=== PATIENT | female | born 1980 | race Caucasian/White ===

== ENCOUNTER → 2018-03-25 08:14 | Outpatient (CLI) | payer OTHER, SELFPAY ==
--- NOTE | 2018-03-25 | DI.MG.S_ITS ---
BILATERAL DIGITAL SCREENING MAMMOGRAM 3D/2D WITH CAD: 03/25/2018 CLINICAL: Baseline exam. Routine screening. Family history of breast cancer. Comparison is made to exam dated: 01/08/2011 [facility]. The tissue of both breasts is extremely dense, which lowers the sensitivity of mammography. Current study was also evaluated with a Computer Aided Detection (CAD) system. No significant masses, calcifications, or other findings are seen in either breast. There has been no significant interval change. IMPRESSION: NEGATIVE There is no mammographic evidence of malignancy. A 1 year screening mammogram is recommended. This exam was interpreted at Station ID: [id number]. NOTE: For mammograms, a report in lay terms will be sent to the patient. Approximately 15% of breast malignancies will not be visualized mammographically. In the management of a palpable breast mass, a negative mammogram must not discourage biopsy of a clinically suspicious lesion. Electronically Signed By: Ashok [email or web address]:03/25/2018 11:08:40 letter sent: Normal Exam ACR BI-RADS Category 1: Negative [id number]
== END ==
PROVIDERS: Family Provider Obstetrics & Gynecology; PCP Obstetrics & Gynecology; Visit Provider Obstetrics & Gynecology
DX: Z12.31 Encounter for screening mammogram for malignant neoplasm of breast (principal); Z80.3 Family history of malignant neoplasm of breast
CPT/HCPCS: 77063; 77067

== ENCOUNTER 2018-10-29 09:45 | Outpatient (RCR) | payer OTHER, SELFPAY ==
--- NOTE | 2018-06-09 14:21 | PT.OIE ---
Current Diagnoses Stress incontinence (female) (male) (06/09/18) Other female genital prolapse (06/09/18) Past Surgical History History of oral surgery History of third molar tooth extraction Status post breast biopsy Provider Visit Care Team Role Provider Type Delmy Trent MD Attending Provider Physician Family Provider Primary Care Provider Specialty: PACKAGE COLLECTOR Address: [address] [place] [address], [facility] Email: [email or web address] Physical Therapy Initial Evaluation PT-OP-A Visit Information Start: 06/09/18 13:14 Freq: Status: Active Protocol: Document 06/09/18 10:30 AMB (Rec: 06/09/18 13:38 AMB [email or web address]) Out-Patient Physical Therapy Visit Information Visit Information Visit Type Initial Evaluation Visit Start Time 10:30 Visit Stop Time 11:30 Total Visit Minutes 60 Visit Number 1 Evaluation Information Evaluation Date 06/07/18 PT-OP-B Current Condition Start: 06/09/18 13:14 Freq: Status: Active Protocol: Document 06/09/18 10:30 AMB (Rec: 06/09/18 13:38 AMB [email or web address]) Current Condition History of Current Condition Onset Date 06/2017 Current Complaints urinary frequency, bloating, urinary leak with strong cough History of Current Condition The patient states she had her son 4 years ago. Vaginal delivery without tearing or episiotomy. 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 A year ago she had uterine ablation surgery due to heavy menses 2x/month. 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 Since her surgery she has noticed more frequent urination. She feels that she will void her bladder fully, and then 10 minutes later have to urinate again and it is a full urination again. She does not think that the urine stream is as strong as it used to be, and does feel that she pushes to get the urine out. She goes to the bathroom about every 2 hours when she is home with her son (during the summer). She needs to hold her bladder 3.5 hours during the school year and this is difficult. Gets up 2x/night to urinate. She denies specific food/drink triggers. She did have two bacterial vaginosus infections since her uterine ablation. Denies bowel sx- 1 bowel movement/ day normal consistency. Prior Functional Status Baseline Function- ADL's Independent Baseline Function- Mobility Independent Current Functional Impairments (Reported) Functional Limitations- Work/School Difficulty waiting more than 3 hours to urinate. Functional Limitations- Recreation/ Pt feels she would leak urine Hobbies if she were to run or exercise with a full bladder,she does not think this would happen if she just urinated. Personal Factors Other Personal Factors That May Effect Pt returning to work in 1 Therapy/Recovery month. PT-OP-C Subjective Start: 06/09/18 13:14 Freq: Status: Active Protocol: Document 06/09/18 10:30 AMB (Rec: 06/09/18 13:38 AMB [email or web address]) Patient Questionnaires Pelvic Pain and Urgency/Frequency Patient Symptom Scale Pelvic Pain Score 15 OP-PT Pain Assessment Comments Pain Comments Bloating in lower abdomen, not associated with bowel movements. Needs to urinate after intercourse which is new . PT-OP-I Pelvic Floor Start: 06/09/18 13:14 Freq: Status: Active Protocol: Document 06/09/18 10:30 AMB (Rec: 06/09/18 13:45 AMB [email or web address]) Pelvic Floor Assessment Urine Pelvic Floor Surgery uterine ablation 1 year previous Urinary Symptoms Urge Sensation Prolapse Leakage Size Small Leakage Cause Cough Exercise Urge Nocturia 2 Urine Pad Type Panty Liner Bowel Bowel Movement Frequency 1/day Pelvic Clock Pelvic Clock 12-3 Hypertonic Tightness Pelvic Clock 3-6 Hypertonic Tenderness Tightness Pelvic Clock 6-9 Hypertonic Tenderness Tightness Pelvic Clock 9-12 Hypertonic Tightness Pelvic Clock Other Most tenderness bilaterally at obterator internus Prolapse Cystocele Grade 3 Prolapse Comments Prolapse visible just deep to introitus, descends slightly more with valsalva Contraction Ability Voluntary Contraction Moderate Voluntary Relaxation Weak Manual Muscle Testing Left 2 Manual Muscle Testing Right 2 Manual Muscle Testing Anterior 1 Manual Muscle Testing Posterior 3 Muscle Endurance (Seconds) 5 Number of Quick Contractions In 10 4 Seconds PT-OP-T Assessment and Plan Start: 06/09/18 13:14 Freq: Status: Active Protocol: Document 06/09/18 10:30 AMB (Rec: 06/09/18 13:53 AMB [email or web address]) Physical Therapy Assessment Rehab Potential Rehabilitation Potential Good Evaluation Complexity Number of Personal Factors/Comorbidities 1-2 Number of Body Systems Impaired 3 Clinical Presentation at Evaluation Stable Impairments Impairments Functional Activities Soft Tissue Mobility Strength Goals Three Impairment Pelvic tension Short Term Goal (STG) The patient will show decreased tension in her pelvic floor with good relaxation and without pain with palpation throughout pelvic floor. STG Duration 4 weeks Two Impairment Stress incontinence Inspector Brake Lining Goal (LTG) The patient will not leak with cough/sneeze LTG Duration 8 weeks One Impairment Urinary frequency Short Term Goal (STG) The patient will decrease her nocturia to 1x/night. STG Duration 4 weeks Inspector Brake Lining Goal (LTG) The patient will decrease her urinary frequency to 1 void every 3 hours. LTG Duration 8 weeks Assessment Summary Assessment The patient attends physical therapy with cystocele, pelvic floor tension, most at obterator internus bilaterally, but difficulty relaxing the pelvic floor in general, and poor bladder habits, that have all combined to increase her urinary frequency and urgency. 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 The patient will benefit from PT to provide manual therapy and stretch the pelvic floor, instruct her in appropriate bladder habits, and then strengthen the anterior pelvic floor as needed. Physical Therapy Plan Frequency and Duration Frequency of Treatment 1x/Week Duration of Treatment 8 weeks Plan of Care Start Date 06/09/18 Plan of Care End Date 08/04/18 Therapeutic Interventions Therapeutic Interventions Home Exercise Program Manual Therapy Neuromuscular Re-education Self-Care/Home Management Soft Tissue Mobilization Therapeutic Activities Therapeutic Exercises Modalities Biofeedback Electric Stimulation Next Visit Focus/Plan Next Note Type Treatment Note
--- NOTE | 2018-06-09 14:24 | PT.OPPOC ---
Current Diagnoses Stress incontinence (female) (male) (06/09/18) Other female genital prolapse (06/09/18) Provider Visit Care Team Role Provider Type Delmy Trent MD Attending Provider Physician Family Provider Primary Care Provider Specialty: CRUSHER PLANT OPERATOR Address: [address] [place] [address], [id number] Email: [email or web address] Plan Of Care PT-OP-T Assessment and Plan Start: 06/09/18 13:14 Freq: Status: Active Protocol: Document 06/09/18 10:30 AMB (Rec: 06/09/18 13:53 AMB [email or web address]) Physical Therapy Assessment Rehab Potential Rehabilitation Potential Good Evaluation Complexity Number of Personal Factors/Comorbidities 1-2 Number of Body Systems Impaired 3 Clinical Presentation at Evaluation Stable Impairments Impairments Functional Activities Soft Tissue Mobility Strength Goals Three Impairment Pelvic tension Short Term Goal (STG) The patient will show decreased tension in her pelvic floor with good relaxation and without pain with palpation throughout pelvic floor. STG Duration 4 weeks Two Impairment Stress incontinence Long-Term Goal (LTG) The patient will not leak with cough/sneeze LTG Duration 8 weeks One Impairment Urinary frequency Short Term Goal (STG) The patient will decrease her nocturia to 1x/night. STG Duration 4 weeks Long-Term Goal (LTG) The patient will decrease her urinary frequency to 1 void every 3 hours. LTG Duration 8 weeks Assessment Summary Assessment The patient attends physical therapy with cystocele, pelvic floor tension, most at oberatur internus bilaterally, but difficulty relaxing the pelvic floor in genernal, and poor bladder habits, that have all combined to increase her urinary frequency and urgency. 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 The patient will benefit from PT to provide manual therapy and stretch the pelvic floor, instruct her in appropriate bladder habits, and then strengthen the anterior pelvic floor as needed. Physical Therapy Plan Frequency and Duration Frequency of Treatment 1x/Week Duration of Treatment 8 weeks Plan of Care Start Date 06/09/18 Plan of Care End Date 08/04/18 Therapeutic Interventions Therapeutic Interventions Home Exercise Program Manual Therapy Neuromuscular Re-education Self-Care/Home Management Soft Tissue Mobilization Therapeutic Activities Therapeutic Exercises Modalities Biofeedback Electric Stimulation Next Visit Focus/Plan Next Note Type Treatment Note Plan of Care Dates Plan of Care Start Date 06/09/18 Plan of Care End Date 08/04/18 Please Sign and Return: I have reviewed this Plan of Care and certify that the skilled therapy services above are required to meet the patient?s needs. Physician Signature Date Printed Name and Credentials Clinical Instructor Signature Printed Name and Credentials
--- NOTE | 2018-06-16 12:48 | PT.OTN ---
Current Diagnoses Stress incontinence (female) (male) (06/16/18) Other female genital prolapse (06/16/18) Physical Therapy Treatment Note PT-OP-A Visit Information Start: 06/09/18 13:14 Freq: Status: Active Protocol: Document 06/16/18 10:30 AMB (Rec: 06/16/18 12:06 AMB [email or web address]) Out-Patient Physical Therapy Visit Information Visit Information Visit Type Treatment Note Visit Start Time 10:30 Visit Stop Time 11:30 Total Visit Minutes 60 Visit Number 2 Evaluation Information Evaluation Date 06/07/18 PT-OP-B Current Condition Start: 06/09/18 13:14 Freq: Status: Active Protocol: Document 06/09/18 10:30 AMB (Rec: 06/09/18 13:38 AMB [email or web address]) Current Condition History of Current Condition Onset Date 06/2017 Current Complaints urinary frequency, bloating, urinary leak with strong cough History of Current Condition The patient states she had her son 4 years ago. Vaginal delivery without tearing or episiotomy. 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 A year ago she had uterine ablation surgery due to heavy menses 2x/month. 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 Since her surgery she has noticed more frequent urination. She feels that she will void her bladder fully, and then 10 minutes later have to urinate again and it is a full urination again. She does not think that the urine stream is as strong as it used to be, and does feel that she pushes to get the urine out. She goes to the bathroom about every 2 hours when she is home with her son (during the summer). She needs to hold her bladder 3.5 hours during the school year and this is difficult. Gets up 2x/night to urinate. She denies specific food/drink triggers. She did have two bacterial vaginosus infections since her uterine ablation. Denies bowel sx- 1 bowel movement/ day normal consistency. Prior Functional Status Baseline Function- ADL's Independent Baseline Function- Mobility Independent Current Functional Impairments (Reported) Functional Limitations- Work/School Difficulty waiting more than 3 hours to urinate. Functional Limitations- Recreation/ Pt feels she would leak urine Hobbies if she were to run or exercise with a full bladder,she does not think this would happen if she just urinated. Personal Factors Other Personal Factors That May Effect Pt returning to work in 1 Therapy/Recovery month. PT-OP-C Subjective Start: 06/09/18 13:14 Freq: Status: Active Protocol: Document 06/16/18 10:30 AMB (Rec: 06/16/18 12:06 AMB [email or web address]) OP-PT Subjective Patient Comments Patient Comments Pt has been trying to relax her pelvic floor while urinating. She feels she can void the majority of urine this way, but the last little bit needs to be pushed out to get a full void. PT-OP-I Pelvic Floor Start: 06/09/18 13:14 Freq: Status: Active Protocol: Document 06/16/18 10:30 AMB (Rec: 06/16/18 12:06 AMB [email or web address]) Pelvic Floor Assessment SEMG (uV) Baseline 2.0 Quick Contraction 8.2 10 Second Contraction 7.5 Relaxation Fair Comments Pelvic Floor Comments Pt with 1 finger width seperation throughout abdominals above and below umbilicus. PT-OP-Q Treatments Start: 06/09/18 13:14 Freq: Status: Active Protocol: Document 06/16/18 10:30 AMB (Rec: 06/16/18 12:06 AMB [email or web address]) Therapeutic Exercises Supine Exercises 3 Supine Exercise Name air bike with TrA stab Reps/Minutes 10 2 Supine Exercise Name SLR with TrA stab Reps/Minutes 10 1 Supine Exercise Name TrA stab Comments with post pelvic tilt Manual Therapy Treatment Soft Tissue Mobilization 1 Body Location abdomen Mobilization Type Myofascial Release Intensity/Depth Moderate Body Position Supine Comments ILU massage Taping 1 Body Location abdomen Treatment Focus 4 Is crossing in herringbone pattern Type of Tape Kinesio Tape Neuro Re-Education Treatment Other Activities 1 Details pelvic floor coordination training Comments quick flicks, long holds, focus on relaxation training with sEMG PT-OP-T Assessment and Plan Start: 06/09/18 13:14 Freq: Status: Active Protocol: Document 06/16/18 10:30 AMB (Rec: 06/16/18 12:48 AMB [email or web address]) Physical Therapy Assessment Assessment Summary Assessment Pt showed good muscle activity and relaxation with biofeedback. Continues to need education in proper bladder habits. Physical Therapy Plan Next Visit Focus/Plan Next Note Type Treatment Note Next Visit Plan Re-evaluate pelvic floor tension manually, further educate bladder habits, bladder diary.
--- NOTE | 2018-06-22 15:51 | PT.OTN ---
Current Diagnoses Stress incontinence (female) (male) (06/22/18) Other female genital prolapse (06/22/18) Physical Therapy Treatment Note PT-OP-A Visit Information Start: 06/09/18 13:14 Freq: Status: Active Protocol: Document 06/22/18 10:30 AMB (Rec: 06/22/18 10:34 AMB [id number]) Out-Patient Physical Therapy Visit Information Visit Information Visit Type Treatment Note Visit Start Time 10:30 Visit Stop Time 11:15 Total Visit Minutes 45 Visit Number 3 PT-OP-B Current Condition Start: 06/09/18 13:14 Freq: Status: Active Protocol: Document 06/09/18 10:30 AMB (Rec: 06/09/18 13:38 AMB [email or web address]) Current Condition History of Current Condition Onset Date 06/2017 Current Complaints urinary frequency, bloating, urinary leak with strong cough History of Current Condition The patient states she had her son 4 years ago. Vaginal delivery without tearing or episiotomy. 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 A year ago she had uterine ablation surgery due to heavy menses 2x/month. 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 Since her surgery she has noticed more frequent urination. She feels that she will void her bladder fully, and then 10 minutes later have to urinate again and it is a full urination again. She does not think that the urine stream is as strong as it used to be, and does feel that she pushes to get the urine out. She goes to the bathroom about every 2 hours when she is home with her son (during the summer). She needs to hold her bladder 3.5 hours during the school year and this is difficult. Gets up 2x/night to urinate. She denies specific food/drink triggers. She did have two bacterial vaginosus infections since her uterine ablation. Denies bowel sx- 1 bowel movement/ day normal consistency. Prior Functional Status Baseline Function- ADL's Independent Baseline Function- Mobility Independent Current Functional Impairments (Reported) Functional Limitations- Work/School Difficulty waiting more than 3 hours to urinate. Functional Limitations- Recreation/ Pt feels she would leak urine Hobbies if she were to run or exercise with a full bladder,she does not think this would happen if she just urinated. Personal Factors Other Personal Factors That May Effect Pt returning to work in 1 Therapy/Recovery month. PT-OP-C Subjective Start: 06/09/18 13:14 Freq: Status: Active Protocol: Document 06/22/18 10:30 AMB (Rec: 06/22/18 13:41 AMB [email or web address]) OP-PT Subjective Patient Comments Patient Comments Pt reports she has been trying to do her exercises 2x/day, but it is probably more like 1x/day. PT-OP-I Pelvic Floor Start: 06/09/18 13:14 Freq: Status: Active Protocol: Document 06/16/18 10:30 AMB (Rec: 06/16/18 12:06 AMB [email or web address]) Pelvic Floor Assessment SEMG (uV) Baseline 2.0 Quick Contraction 8.2 10 Second Contraction 7.5 Relaxation Fair Comments Pelvic Floor Comments Pt with 1 finger width seperation throughout abdominals above and below umbilicus. PT-OP-Q Treatments Start: 06/09/18 13:14 Freq: Status: Active Protocol: Document 06/22/18 10:30 AMB (Rec: 06/22/18 13:41 AMB [email or web address]) Therapeutic Exercises Supine Exercises 5 Supine Exercise Name hip add isometric Reps/Minutes 2x10 Comments pelvic floor, trA 4 Supine Exercise Name hip abd T band Resistance #2 Reps/Minutes 3x10 Comments vc breathe 1 Supine Exercise Name TrA stab Comments with post pelvic tilt Manual Therapy Treatment Taping 1 Body Location abdomen Treatment Focus 4 Is crossing in herringbone pattern Type of Tape Kinesio Tape PT-OP-T Assessment and Plan Start: 06/09/18 13:14 Freq: Status: Active Protocol: Document 06/22/18 10:30 AMB (Rec: 06/22/18 13:49 AMB [email or web address]) Physical Therapy Assessment Assessment Summary Assessment Pt required extensive reassurance today. She continues to feel it is difficult to void completely without pushing out at the end . Reinforced complete relaxation. Physical Therapy Plan Next Visit Focus/Plan Next Note Type Treatment Note Next Visit Plan Progress relaxation/ strengthening as tolerated.
--- NOTE | 2018-06-30 13:10 | PT.OTN ---
Current Diagnoses Stress incontinence (female) (male) (06/30/18) Other female genital prolapse (06/30/18) Physical Therapy Treatment Note PT-OP-A Visit Information Start: 06/09/18 13:14 Freq: Status: Active Protocol: Document 06/30/18 10:30 AMB (Rec: 06/30/18 13:07 AMB [email or web address]) Out-Patient Physical Therapy Visit Information Visit Information Visit Type Treatment Note Visit Start Time 10:30 Visit Stop Time 11:15 Total Visit Minutes 45 Visit Number 4 Evaluation Information Evaluation Date 06/07/18 PT-OP-B Current Condition Start: 06/09/18 13:14 Freq: Status: Active Protocol: Document 06/09/18 10:30 AMB (Rec: 06/09/18 13:38 AMB [email or web address]) Current Condition History of Current Condition Onset Date 06/2017 Current Complaints urinary frequency, bloating, urinary leak with strong cough History of Current Condition The patient states she had her son 4 years ago. Vaginal delivery without tearing or episiotomy. 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 A year ago she had uterine ablation surgery due to heavy menses 2x/month. 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 Since her surgery she has noticed more frequent urination. She feels that she will void her bladder fully, and then 10 minutes later have to urinate again and it is a full urination again. She does not think that the urine stream is as strong as it used to be, and does feel that she pushes to get the urine out. She goes to the bathroom about every 2 hours when she is home with her son (during the summer). She needs to hold her bladder 3.5 hours during the school year and this is difficult. Gets up 2x/night to urinate. She denies specific food/drink triggers. She did have two bacterial vaginosus infections since her uterine ablation. Denies bowel sx- 1 bowel movement/ day normal consistency. Prior Functional Status Baseline Function- ADL's Independent Baseline Function- Mobility Independent Current Functional Impairments (Reported) Functional Limitations- Work/School Difficulty waiting more than 3 hours to urinate. Functional Limitations- Recreation/ Pt feels she would leak urine Hobbies if she were to run or exercise with a full bladder,she does not think this would happen if she just urinated. Personal Factors Other Personal Factors That May Effect Pt returning to work in 1 Therapy/Recovery month. PT-OP-C Subjective Start: 06/09/18 13:14 Freq: Status: Active Protocol: Document 06/30/18 10:30 AMB (Rec: 06/30/18 13:07 AMB [email or web address]) OP-PT Subjective Patient Comments Patient Comments Pt reports she has been doing better about her exercises, she still finds it hard to not push when getting all of the urine out. PT-OP-I Pelvic Floor Start: 06/09/18 13:14 Freq: Status: Active Protocol: Document 06/16/18 10:30 AMB (Rec: 06/16/18 12:06 AMB [email or web address]) Pelvic Floor Assessment SEMG (uV) Baseline 2.0 Quick Contraction 8.2 10 Second Contraction 7.5 Relaxation Fair Comments Pelvic Floor Comments Pt with 1 finger width seperation throughout abdominals above and below umbilicus. PT-OP-Q Treatments Start: 06/09/18 13:14 Freq: Status: Active Protocol: Document 06/30/18 10:30 AMB (Rec: 06/30/18 13:07 AMB [email or web address]) Therapeutic Exercises Supine Exercises 5 Supine Exercise Name hip add isometric Reps/Minutes 2x10 Comments pelvic floor, trA 4 Supine Exercise Name hip abd T band Resistance #2 Reps/Minutes 3x10 Comments vc breathe 1 Supine Exercise Name TrA stab Comments with post pelvic tilt Self-Care/Home Management Treatment Education Other Education Kinesiotape- how to self tape, amount of stretch, skin sensitivity. Activities Self-Care/Home Management Activities Role of pelvic relaxation with urination and defecation. Allowing time in schedule to use the bathroom, not rushing or pushing. PT-OP-T Assessment and Plan Start: 06/09/18 13:14 Freq: Status: Active Protocol: Document 06/30/18 10:30 AMB (Rec: 06/30/18 13:07 AMB [email or web address]) Physical Therapy Assessment Assessment Summary Assessment Continued education in not using pelvic floor to push duirng urination defecation. Can use TrA if needed. Reassured pt that 10 seconds of urination is normal. Pt will need to wait 4 hours when she returns to work, and this will be difficult for her. Pt will be on hold thru August due to her work schedule and this therapist's availability. Physical Therapy Plan Frequency and Duration Frequency of Treatment 1x/Week Duration of Treatment 8 weeks Plan of Care Start Date 06/09/18 Plan of Care End Date 08/04/18 Next Visit Focus/Plan Next Note Type Treatment Note Next Visit Plan Progress relaxation/ strengthening as tolerated.
--- NOTE | 2018-08-06 13:34 | PT.OPPOC ---
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 Progress made STG Duration 4 weeks Two Impairment Stress incontinence Half-Way Goal (LTG) The patient will not leak with cough/sneeze Not yet met LTG Duration 8 weeks One Impairment Urinary frequency Short Term Goal (STG) The patient will decrease her nocturia to 1x/night. Intermittently met STG Duration 4 weeks Cnc Service Engineer Goal (LTG) The patient will decrease her urinary frequency to 1 void every 3 hours.- Intermittently met LTG Duration 8 weeks Assessment Summary Assessment Pt is improving with relaxation, but continues to be frustrated that she has to void every 2-3 hours. Working with patient to understand what normal bladder function is, and to accept health bladder habits. Physical Therapy Plan Frequency and Duration Frequency of Treatment 1x/Week Duration of Treatment 8 weeks Plan of Care Start Date 08/06/18 Plan of Care End Date 10/01/18 Next Visit Focus/Plan Next Note Type Treatment Note Next Visit Plan Progress relaxation/ strengthening as tolerated. Plan of Care Dates Plan of Care Start Date 08/06/18 Plan of Care End Date 10/01/18 Please Sign and Return: I have reviewed this Plan of Care and certify that the skilled therapy services above are required to meet the patient?s needs. Physician Signature Date Printed Name and Credentials Clinical Instructor Signature Printed Name and Credentials
--- NOTE | 2018-08-06 13:35 | PT.OTN ---
Current Diagnoses Stress incontinence (female) (male) (08/06/18) Other female genital prolapse (08/06/18) Physical Therapy Treatment Note PT-OP-A Visit Information Start: 06/09/18 13:14 Freq: Status: Active Protocol: Document 08/06/18 10:30 AMB (Rec: 08/06/18 13:33 AMB [email or web address]) Out-Patient Physical Therapy Visit Information Visit Information Visit Type Progress Note Visit Start Time 10:30 Visit Stop Time 11:15 Total Visit Minutes 45 Visit Number 5 Evaluation Information Evaluation Date 06/07/18 PT-OP-B Current Condition Start: 06/09/18 13:14 Freq: Status: Active Protocol: Document 06/09/18 10:30 AMB (Rec: 06/09/18 13:38 AMB [email or web address]) Current Condition History of Current Condition Onset Date 06/2017 Current Complaints urinary frequency, bloating, urinary leak with strong cough History of Current Condition The patient states she had her son 4 years ago. Vaginal delivery without tearing or episiotomy. 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 A year ago she had uterine ablation surgery due to heavy menses 2x/month. 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 Since her surgery she has noticed more frequent urination. She feels that she will void her bladder fully, and then 10 minutes later have to urinate again and it is a full urination again. She does not think that the urine stream is as strong as it used to be, and does feel that she pushes to get the urine out. She goes to the bathroom about every 2 hours when she is home with her son (during the summer). She needs to hold her bladder 3.5 hours during the school year and this is difficult. Gets up 2x/night to urinate. She denies specific food/drink triggers. She did have two bacterial vaginosus infections since her uterine ablation. Denies bowel sx- 1 bowel movement/ day normal consistency. Prior Functional Status Baseline Function- ADL's Independent Baseline Function- Mobility Independent Current Functional Impairments (Reported) Functional Limitations- Work/School Difficulty waiting more than 3 hours to urinate. Functional Limitations- Recreation/ Pt feels she would leak urine Hobbies if she were to run or exercise with a full bladder,she does not think this would happen if she just urinated. Personal Factors Other Personal Factors That May Effect Pt returning to work in 1 Therapy/Recovery month. PT-OP-C Subjective Start: 06/09/18 13:14 Freq: Status: Active Protocol: Document 08/06/18 10:30 AMB (Rec: 08/06/18 13:33 AMB [email or web address]) OP-PT Subjective Patient Comments Patient Comments Pt reports she has been doing exercises, she finds that she still leaks if her bladder is full and she sneezes. She is trying to relax more, but she does feel like she has to push to get the urine out at the end. PT-OP-I Pelvic Floor Start: 06/09/18 13:14 Freq: Status: Active Protocol: Document 08/06/18 10:30 AMB (Rec: 08/06/18 13:33 AMB [email or web address]) Pelvic Floor Assessment Pelvic Clock Pelvic Clock 12-3 Tightness Pelvic Clock 3-6 Tightness Pelvic Clock 6-9 Tightness Pelvic Clock 9-12 Tightness Contraction Ability Voluntary Contraction Moderate Voluntary Relaxation Weak Muscle Endurance (Seconds) 10 PT-OP-Q Treatments Start: 06/09/18 13:14 Freq: Status: Active Protocol: Document 08/06/18 10:30 AMB (Rec: 08/06/18 13:33 AMB [email or web address]) Therapeutic Exercises Supine Exercises 5 Supine Exercise Name hip add isometric Reps/Minutes 2x10 Comments pelvic floor, trA 4 Supine Exercise Name hip abd T band Resistance #2 Reps/Minutes 3x10 Comments vc breathe 1 Supine Exercise Name TrA stab Comments with post pelvic tilt Neuro Re-Education Treatment Other Activities 1 Details pelvic floor coordination training Comments quick flicks, long holds, focus on relaxation training with sEMG PT-OP-T Assessment and Plan Start: 06/09/18 13:14 Freq: Status: Active Protocol: Document 08/06/18 10:30 AMB (Rec: 08/06/18 13:33 AMB [email or web address]) Physical Therapy Assessment Goals Three Impairment Pelvic tension Short Term Goal (STG) The patient will show decreased tension in her pelvic floor with good relaxation and without pain with palpation throughout pelvic floor. Progress made STG Duration 4 weeks Two Impairment Stress incontinence Half-Way Goal (LTG) The patient will not leak with cough/sneeze Not yet met LTG Duration 8 weeks One Impairment Urinary frequency Short Term Goal (STG) The patient will decrease her nocturia to 1x/night. Intermittently met STG Duration 4 weeks Half-Way Goal (LTG) The patient will decrease her urinary frequency to 1 void every 3 hours.- Intermittently met LTG Duration 8 weeks Assessment Summary Assessment Pt is improving with relaxation, but continues to be frustrated that she has to void every 2-3 hours. Working with patient to understand what normal bladder function is, and to accept health bladder habits. Physical Therapy Plan Frequency and Duration Frequency of Treatment 1x/Week Duration of Treatment 8 weeks Plan of Care Start Date 08/06/18 Plan of Care End Date 10/01/18 Next Visit Focus/Plan Next Note Type Treatment Note Next Visit Plan Progress relaxation/ strengthening as tolerated.
--- NOTE | 2018-08-11 11:01 | PT.OTN ---
Current Diagnoses Stress incontinence (female) (male) (08/11/18) Other female genital prolapse (08/11/18) Physical Therapy Treatment Note PT-OP-A Visit Information Start: 06/09/18 13:14 Freq: Status: Active Protocol: Document 08/11/18 08:45 AMB (Rec: 08/11/18 09:15 AMB [id number]) Out-Patient Physical Therapy Visit Information Visit Information Visit Type Treatment Note Visit Start Time 08:45 Visit Stop Time 09:30 Total Visit Minutes 45 Visit Number 6 PT-OP-B Current Condition Start: 06/09/18 13:14 Freq: Status: Active Protocol: Document 06/09/18 10:30 AMB (Rec: 06/09/18 13:38 AMB [email or web address]) Current Condition History of Current Condition Onset Date 06/2017 Current Complaints urinary frequency, bloating, urinary leak with strong cough History of Current Condition The patient states she had her son 4 years ago. Vaginal delivery without tearing or episiotomy. 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 A year ago she had uterine ablation surgery due to heavy menses 2x/month. 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 Since her surgery she has noticed more frequent urination. She feels that she will void her bladder fully, and then 10 minutes later have to urinate again and it is a full urination again. She does not think that the urine stream is as strong as it used to be, and does feel that she pushes to get the urine out. She goes to the bathroom about every 2 hours when she is home with her son (during the summer). She needs to hold her bladder 3.5 hours during the school year and this is difficult. Gets up 2x/night to urinate. She denies specific food/drink triggers. She did have two bacterial vaginosus infections since her uterine ablation. Denies bowel sx- 1 bowel movement/ day normal consistency. Prior Functional Status Baseline Function- ADL's Independent Baseline Function- Mobility Independent Current Functional Impairments (Reported) Functional Limitations- Work/School Difficulty waiting more than 3 hours to urinate. Functional Limitations- Recreation/ Pt feels she would leak urine Hobbies if she were to run or exercise with a full bladder,she does not think this would happen if she just urinated. Personal Factors Other Personal Factors That May Effect Pt returning to work in 1 Therapy/Recovery month. PT-OP-C Subjective Start: 06/09/18 13:14 Freq: Status: Active Protocol: Document 08/11/18 08:45 AMB (Rec: 08/11/18 09:15 AMB [id number]) OP-PT Subjective Patient Comments Patient Comments Pt with nocturia 5x/night recently. PT-OP-I Pelvic Floor Start: 06/09/18 13:14 Freq: Status: Active Protocol: Document 08/06/18 10:30 AMB (Rec: 08/06/18 13:33 AMB [email or web address]) Pelvic Floor Assessment Pelvic Clock Pelvic Clock 12-3 Tightness Pelvic Clock 3-6 Tightness Pelvic Clock 6-9 Tightness Pelvic Clock 9-12 Tightness Contraction Ability Voluntary Contraction Moderate Voluntary Relaxation Weak Muscle Endurance (Seconds) 10 PT-OP-Q Treatments Start: 06/09/18 13:14 Freq: Status: Active Protocol: Document 08/11/18 08:45 AMB (Rec: 08/11/18 11:00 AMB [email or web address]) Therapeutic Activity Therapeutic Activity 1 Name Desk ergonomics Comments Setup to allow for pelvic relaxation, patient always sits on edge of chair, not using back rest. Neuro Re-Education Treatment Other Activities 1 Details pelvic floor coordination training Comments quick flicks, long holds, focus on relaxation training with sEMG PT-OP-T Assessment and Plan Start: 06/09/18 13:14 Freq: Status: Active Protocol: Document 08/11/18 08:45 AMB (Rec: 08/11/18 11:00 AMB [email or web address]) Physical Therapy Assessment Assessment Summary Assessment Pt encouraged to think about pelvic floor throughout the day to check in with it, with sEMG she started at 5 but was able to get down to 2 with concentration. Physical Therapy Plan Next Visit Focus/Plan Next Note Type Treatment Note Next Visit Plan Progress relaxation/ strengthening as tolerated.
--- NOTE | 2018-08-18 15:53 | PT.OTN ---
Current Diagnoses Stress incontinence (female) (male) (08/18/18) Other female genital prolapse (08/18/18) Physical Therapy Treatment Note PT-OP-A Visit Information Start: 06/09/18 13:14 Freq: Status: Active Protocol: Document 08/18/18 08:45 AMB (Rec: 08/18/18 15:52 AMB [email or web address]) Out-Patient Physical Therapy Visit Information Visit Information Visit Type Treatment Note Visit Start Time 08:45 Visit Stop Time 09:30 Total Visit Minutes 45 Visit Number 7 Evaluation Information Evaluation Date 06/07/18 PT-OP-B Current Condition Start: 06/09/18 13:14 Freq: Status: Active Protocol: Document 06/09/18 10:30 AMB (Rec: 06/09/18 13:38 AMB [email or web address]) Current Condition History of Current Condition Onset Date 06/2017 Current Complaints urinary frequency, bloating, urinary leak with strong cough History of Current Condition The patient states she had her son 4 years ago. Vaginal delivery without tearing or episiotomy. 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 A year ago she had uterine ablation surgery due to heavy menses 2x/month. 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 Since her surgery she has noticed more frequent urination. She feels that she will void her bladder fully, and then 10 minutes later have to urinate again and it is a full urination again. She does not think that the urine stream is as strong as it used to be, and does feel that she pushes to get the urine out. She goes to the bathroom about every 2 hours when she is home with her son (during the summer). She needs to hold her bladder 3.5 hours during the school year and this is difficult. Gets up 2x/night to urinate. She denies specific food/drink triggers. She did have two bacterial vaginosus infections since her uterine ablation. Denies bowel sx- 1 bowel movement/ day normal consistency. Prior Functional Status Baseline Function- ADL's Independent Baseline Function- Mobility Independent Current Functional Impairments (Reported) Functional Limitations- Work/School Difficulty waiting more than 3 hours to urinate. Functional Limitations- Recreation/ Pt feels she would leak urine Hobbies if she were to run or exercise with a full bladder,she does not think this would happen if she just urinated. Personal Factors Other Personal Factors That May Effect Pt returning to work in 1 Therapy/Recovery month. PT-OP-C Subjective Start: 06/09/18 13:14 Freq: Status: Active Protocol: Document 08/18/18 08:45 AMB (Rec: 08/18/18 15:52 AMB [email or web address]) OP-PT Subjective Patient Comments Patient Comments Pt most frustrated by the nocturia at this point. Urinates at 9pm, falls asleep by 9:30, and then wakes back up to 10:30 needing to urinate . PT-OP-I Pelvic Floor Start: 06/09/18 13:14 Freq: Status: Active Protocol: Document 08/06/18 10:30 AMB (Rec: 08/06/18 13:33 AMB [email or web address]) Pelvic Floor Assessment Pelvic Clock Pelvic Clock 12-3 Tightness Pelvic Clock 3-6 Tightness Pelvic Clock 6-9 Tightness Pelvic Clock 9-12 Tightness Contraction Ability Voluntary Contraction Moderate Voluntary Relaxation Weak Muscle Endurance (Seconds) 10 PT-OP-Q Treatments Start: 06/09/18 13:14 Freq: Status: Active Protocol: Document 08/18/18 08:45 AMB (Rec: 08/18/18 15:52 AMB [email or web address]) Therapeutic Exercises Supine Exercises 5 Supine Exercise Name hip add isometric Reps/Minutes 2x10 Comments pelvic floor, trA 4 Supine Exercise Name hip abd T band Resistance #2 Reps/Minutes 3x10 Comments vc breathe 1 Supine Exercise Name TrA stab Comments with post pelvic tilt Other Exercises 3 Other Exercise Name downward dog 2 Other Exercise Name anny pose 1 Other Exercise Name cat/cow Self-Care/Home Management Treatment Activities Self-Care/Home Management Activities Avoiding hovering to allow pelvic floor relaxation. Avoiding late night fluid consumption if nocturia is especially frustrating. PT-OP-T Assessment and Plan Start: 06/09/18 13:14 Freq: Status: Active Protocol: Document 08/18/18 08:45 AMB (Rec: 08/18/18 15:52 AMB [email or web address]) Physical Therapy Assessment Assessment Summary Assessment Will need to change patient's frequency of treatment due to finances. Encouraged in pelvic floor exercises at night, trying to delay night time voiding. Physical Therapy Plan Next Visit Focus/Plan Next Note Type Treatment Note Next Visit Plan Progress relaxation/ strengthening as tolerated.
--- NOTE | 2018-10-29 12:00 | PT.OTN ---
Current Diagnoses Stress incontinence (female) (male) (10/29/18) Other female genital prolapse (10/29/18) Physical Therapy Treatment Note PT-OP-A Visit Information Start: 06/09/18 13:14 Freq: Status: Active Protocol: Document 10/29/18 09:45 AMB (Rec: 10/29/18 10:01 AMB [email or web address]) Out-Patient Physical Therapy Visit Information Visit Information Visit Type Treatment Note Visit Start Time 08:45 Visit Stop Time 09:30 Total Visit Minutes 45 Visit Number 8 PT-OP-B Current Condition Start: 06/09/18 13:14 Freq: Status: Active Protocol: Document 06/09/18 10:30 AMB (Rec: 06/09/18 13:38 AMB [email or web address]) Current Condition History of Current Condition Onset Date 06/2017 Current Complaints urinary frequency, bloating, urinary leak with strong cough History of Current Condition The patient states she had her son 4 years ago. Vaginal delivery without tearing or episiotomy. 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 A year ago she had uterine ablation surgery due to heavy menses 2x/month. 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 Since her surgery she has noticed more frequent urination. She feels that she will void her bladder fully, and then 10 minutes later have to urinate again and it is a full urination again. She does not think that the urine stream is as strong as it used to be, and does feel that she pushes to get the urine out. She goes to the bathroom about every 2 hours when she is home with her son (during the summer). She needs to hold her bladder 3.5 hours during the school year and this is difficult. Gets up 2x/night to urinate. She denies specific food/drink triggers. She did have two bacterial vaginosus infections since her uterine ablation. Denies bowel sx- 1 bowel movement/ day normal consistency. Prior Functional Status Baseline Function- ADL's Independent Baseline Function- Mobility Independent Current Functional Impairments (Reported) Functional Limitations- Work/School Difficulty waiting more than 3 hours to urinate. Functional Limitations- Recreation/ Pt feels she would leak urine Hobbies if she were to run or exercise with a full bladder,she does not think this would happen if she just urinated. Personal Factors Other Personal Factors That May Effect Pt returning to work in 1 Therapy/Recovery month. PT-OP-C Subjective Start: 06/09/18 13:14 Freq: Status: Active Protocol: Document 10/29/18 09:45 AMB (Rec: 10/29/18 10:01 AMB [id number]) OP-PT Subjective Patient Comments Patient Comments Pt has been on steroids, which has messed with her ability to sleep. PT-OP-I Pelvic Floor Start: 06/09/18 13:14 Freq: Status: Active Protocol: Document 08/06/18 10:30 AMB (Rec: 08/06/18 13:33 AMB [email or web address]) Pelvic Floor Assessment Pelvic Clock Pelvic Clock 12-3 Tightness Pelvic Clock 3-6 Tightness Pelvic Clock 6-9 Tightness Pelvic Clock 9-12 Tightness Contraction Ability Voluntary Contraction Moderate Voluntary Relaxation Weak Muscle Endurance (Seconds) 10 PT-OP-Q Treatments Start: 06/09/18 13:14 Freq: Status: Active Protocol: Document 10/29/18 10:01 AMB (Rec: 11/04/18 08:12 AMB [email or web address]) Manual Therapy Treatment Soft Tissue Mobilization 1 Body Location perineum and bilateral levator ani, obteratur internus Mobilization Type Trigger Point Release Intensity/Depth Moderate Body Position Supine Self-Care/Home Management Treatment Activities Self-Care/Home Management Activities Since pt had not been seen since August, reviewed progress. Reiterated pelvic relaxation techniques, strengthening from a relaxed position. PT-OP-T Assessment and Plan Start: 06/09/18 13:14 Freq: Status: Active Protocol: Document 10/29/18 10:01 AMB (Rec: 10/29/18 10:04 AMB [id number]) Physical Therapy Assessment Goals Three Impairment Pelvic tension Short Term Goal (STG) The patient will show decreased tension in her pelvic floor with good relaxation and without pain with palpation throughout pelvic floor. Progress made STG Duration 4 weeks Two Impairment Stress incontinence Despatch Clerk Goal (LTG) The patient will not leak with cough/sneeze Only when bladder is full LTG Duration 8 weeks One Impairment Urinary frequency Short Term Goal (STG) The patient will decrease her nocturia to 1x/night. Intermittently met STG Duration 4 weeks Despatch Clerk Goal (LTG) The patient will decrease her urinary frequency to 1 void every 3 hours.- Intermittently met LTG Duration 8 weeks Assessment Summary Assessment The patient continues to have pain with palpation of bilateral oberatur internus and levator ani, but denies painful intercourse. Dispensed dilator. Pt continues to be frustrated with urinary frequency and urgency. Continued to educate in pelvic relaxation exercises. Pt is concerned about her high copay, but would benefit from internal manual therapy. We did not start there, as we needed to work on poor bladder habits first, and pt did have a hard time tolerating manual, but at this point that is what would be the most helpful to her. Pt is going to see OB to see if there is anything else medically that she can do. Explained use of dilator, but would recommend further manual therapy at this time. Physical Therapy Plan Frequency and Duration Frequency of Treatment 1x/Week Duration of Treatment 12 weeks Plan of Care Start Date 10/29/18 Plan of Care End Date 01/21/18 Therapeutic Interventions Therapeutic Interventions Home Exercise Program Manual Therapy Neuromuscular Re-education Self-Care/Home Management Soft Tissue Mobilization Therapeutic Activities Therapeutic Exercises Modalities Biofeedback Electric Stimulation Next Visit Focus/Plan Next Note Type Treatment Note Next Visit Plan Manual therapy/ trigger point release
--- NOTE | 2018-10-29 12:00 | PT.OPPOC ---
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 Progress made STG Duration 4 weeks Two Impairment Stress incontinence Prison Goal (LTG) The patient will not leak with cough/sneeze Only when bladder is full LTG Duration 8 weeks One Impairment Urinary frequency Short Term Goal (STG) The patient will decrease her nocturia to 1x/night. Intermittently met STG Duration 4 weeks Prison Goal (LTG) The patient will decrease her urinary frequency to 1 void every 3 hours.- Intermittently met LTG Duration 8 weeks Assessment Summary Assessment The patient continues to have pain with palpation of bilateral oberatur internus and levator ani, but denies painful intercourse. Dispensed dilator. Pt continues to be frustrated with urinary frequency and urgency. Continued to educate in pelvic relaxation exercises. Pt is concerned about her high copay, but would benefit from internal manual therapy. We did not start there, as we needed to work on poor bladder habits first, and pt did have a hard time tolerating manual, but at this point that is what would be the most helpful to her. Pt is going to see OB to see if there is anything else medically that she can do. Explained use of dilator, but would recommend further manual therapy at this time. Physical Therapy Plan Frequency and Duration Frequency of Treatment 1x/Week Duration of Treatment 12 weeks Plan of Care Start Date 10/29/18 Plan of Care End Date 01/21/18 Therapeutic Interventions Therapeutic Interventions Home Exercise Program Manual Therapy Neuromuscular Re-education Self-Care/Home Management Soft Tissue Mobilization Therapeutic Activities Therapeutic Exercises Modalities Biofeedback Electric Stimulation Next Visit Focus/Plan Next Note Type Treatment Note Next Visit Plan Manual therapy/ trigger point release Plan of Care Dates Plan of Care Start Date 10/29/18 Plan of Care End Date 01/21/18 Please Sign and Return: I have reviewed this Plan of Care and certify that the skilled therapy services above are required to meet the patient?s needs. Physician Signature Date Printed Name and Credentials Clinical Instructor Signature Printed Name and Credentials
--- NOTE | 2018-12-13 08:41 | PT.OPDS ---
Current Diagnoses Stress incontinence (female) (male) (10/29/18) Other female genital prolapse (10/29/18) Provider Visit Care Team Role Provider Type Delmy Trent MD Attending Provider Physician Family Provider Primary Care Provider Specialty: [employer] Address: [address] [place] [address], [id number] Email: [email or web address] Visit Number Visit Number 8 Discharge Summary PT-OP-B Current Condition Start: 06/09/18 13:14 Freq: Status: Active Protocol: Document 06/09/18 10:30 AMB (Rec: 06/09/18 13:38 AMB [email or web address]) Current Condition History of Current Condition Onset Date 06/2017 Current Complaints urinary frequency, bloating, urinary leak with strong cough History of Current Condition The patient states she had her son 4 years ago. Vaginal delivery without tearing or episiotomy. 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 A year ago she had uterine ablation surgery due to heavy menses 2x/month. 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 Since her surgery she has noticed more frequent urination. She feels that she will void her bladder fully, and then 10 minutes later have to urinate again and it is a full urination again. She does not think that the urine stream is as strong as it used to be, and does feel that she pushes to get the urine out. She goes to the bathroom about every 2 hours when she is home with her son (during the summer). She needs to hold her bladder 3.5 hours during the school year and this is difficult. Gets up 2x/night to urinate. She denies specific food/drink triggers. She did have two bacterial vaginosus infections since her uterine ablation. Denies bowel sx- 1 bowel movement/ day normal consistency. Prior Functional Status Baseline Function- ADL's Independent Baseline Function- Mobility Independent Current Functional Impairments (Reported) Functional Limitations- Work/School Difficulty waiting more than 3 hours to urinate. Functional Limitations- Recreation/ Pt feels she would leak urine Hobbies if she were to run or exercise with a full bladder,she does not think this would happen if she just urinated. Personal Factors Other Personal Factors That May Effect Pt returning to work in 1 Therapy/Recovery month. PT-OP-C Subjective Start: 06/09/18 13:14 Freq: Status: Active Protocol: Document 10/29/18 09:45 AMB (Rec: 10/29/18 10:01 AMB [id number]) OP-PT Subjective Patient Comments Patient Comments Pt has been on steroids, which has messed with her ability to sleep. PT-OP-I Pelvic Floor Start: 06/09/18 13:14 Freq: Status: Active Protocol: Document 08/06/18 10:30 AMB (Rec: 08/06/18 13:33 AMB [email or web address]) Pelvic Floor Assessment Pelvic Clock Pelvic Clock 12-3 Tightness Pelvic Clock 3-6 Tightness Pelvic Clock 6-9 Tightness Pelvic Clock 9-12 Tightness Contraction Ability Voluntary Contraction Moderate Voluntary Relaxation Weak Muscle Endurance (Seconds) 10 PT-OP-T Assessment and Plan Start: 06/09/18 13:14 Freq: Status: Active Protocol: Document 12/13/18 08:34 AMB (Rec: 12/13/18 08:41 AMB [email or web address]) Physical Therapy Assessment Assessment Summary Assessment The patient is considering a hysterectomy vs sling surgery. She is considering her options, and will consider coming back to PT before having any surgeries, but is ready to be done with PT for now. Pt Would benefit from further pelvic floor relaxation, as she continued to have pain with palpation throughout her pelvic floor at last visit.
== END 2019-01-18 12:35 ==
LOC: PHYS 09:45
PROVIDERS: Family Provider Obstetrics & Gynecology; PCP Obstetrics & Gynecology; Visit Provider Obstetrics & Gynecology
DX: N39.3 Stress incontinence (female) (male) (principal); N81.89 Other female genital prolapse
CPT/HCPCS: 97110; 97112; 97140; 97161; 97530; 97535

== ENCOUNTER → 2021-03-20 11:16 | Outpatient (CLI) | payer OTHER, SELFPAY ==
--- NOTE | 2021-03-20 | DI.MG.S_ITS ---
BILATERAL DIGITAL SCREENING MAMMOGRAM 3D/2D WITH CAD: 03/20/2021 CLINICAL: Routine screening. Family history of breast cancer. Comparison is made to [facility]. The tissue of both breasts is extremely dense, which lowers the sensitivity of mammography. Current study was also evaluated with a Computer Aided Detection (CAD) system. There are benign post operative findings in the left breast. No significant masses, calcifications, or other findings are seen in either breast. There has been no significant interval change. IMPRESSION: BENIGN There is no mammographic evidence of malignancy. A 1 year screening mammogram is recommended. This exam was interpreted at Station ID: [id number]. NOTE: For mammograms, a report in lay terms will be sent to the patient. Approximately 15% of breast malignancies will not be visualized mammographically. In the management of a palpable breast mass, a negative mammogram must not discourage biopsy of a clinically suspicious lesion. Electronically Signed By: Ruben Nixon acr/penrad:03/20/2021 15:18:22 letter sent: Normal Exam ACR BI-RADS Category 2: Benign Finding(s) 3342F
== END ==
PROVIDERS: Family Provider Obstetrics & Gynecology; PCP Family Medicine; Referring Provider Family Medicine; Visit Provider Family Medicine
DX: Z12.31 Encounter for screening mammogram for malignant neoplasm of breast (principal); Z80.3 Family history of malignant neoplasm of breast
CPT/HCPCS: 77063; 77067

== ENCOUNTER → 2022-12-22 13:02 | Outpatient (CLI) | payer OTHER, SELFPAY ==
--- NOTE | 2022-12-22 13:03 | DI.MG.S_ITS ---
BILATERAL DIGITAL SCREENING MAMMOGRAM 3D/2D WITH CAD: 12/22/2022 CLINICAL: Routine screening. Family history of breast cancer. Comparison is made to exams dated: 03/20/2021 mammogram and 03/25/2018 mammogram - [facility]. Both breasts are extremely dense, which lowers the sensitivity of mammography (category d />75% glandular tissue). Current study was also evaluated with a Computer Aided Detection (CAD) system. There are benign post operative findings in the left breast. No significant masses, calcifications, or other findings are seen in either breast. There has been no significant interval change. IMPRESSION: BENIGN There is no mammographic evidence of malignancy. A 1 year screening mammogram is recommended. Based on Tyrer-Cuzick model (a risk assessment model), the patient's lifetime risk is 30.9% and her 10 year risk is 5.9%. If a patient has an elevated risk, a more comprehensive evaluation should be considered and/or a referral to a genetic counselor. The [place] [employer], [place], and NCCN Guidelines advise the consideration of Breast MRI as an adjunct to screening mammography in patients whose Lifetime risk to develop breast cancer is 20% or higher. This exam was interpreted at Station ID: [id number]. NOTE: For mammograms, a report in lay terms will be sent to the patient. Approximately 15% of breast malignancies will not be visualized mammographically. In the management of a palpable breast mass, a negative mammogram must not discourage biopsy of a clinically suspicious lesion. Electronically Signed By: Ruben armando/erickson:12/22/2022 13:25:55 letter sent: Normal Exam ACR BI-RADS Category 2: Benign Finding(s) 3342F
== END ==
PROVIDERS: Family Provider Obstetrics & Gynecology; PCP Family Medicine; Referring Provider Family Medicine; Visit Provider Family Medicine
DX: Z12.31 Encounter for screening mammogram for malignant neoplasm of breast (principal); Z80.3 Family history of malignant neoplasm of breast
CPT/HCPCS: 77063; 77067

== ENCOUNTER → 2025-05-11 09:17 | Outpatient (CLI) | payer OTHER, SELFPAY ==
[2025-05-11 09:43] LABS: Hematocrit 38.6 % (36-46); Hemoglobin 13.5 g/dL (12.0-16.0); Mean Corpuscular HGB Conc 35.0 % (30-36); Mean Corpuscular Hemoglobin 31.5 PG (26-34); Mean Corpuscular Volume 90.0 fL (80-100); Platelet Count 187 X10^3/uL (150-400)
[2025-05-11 10:06] LABS: HEMOLYSIS < 15 (0-50); Iron 126 ug/dL (37-170)
[2025-05-11 10:08] LABS: Alanine Aminotransferase 20 IU/L (<35); Albumin 4.5 g/dL (3.5-5.0); Albumin Globulin Ratio 1.6 (1.0-2.8); Alkaline Phosphatase 31 U/L (38-126); Blood Urea Nitrogen 15 mg/dL (7-17); Calcium 9.5 mg/dL (8.4-10.2); Carbon Dioxide 26 mmol/L (22-32); Chloride 105 mmol/L (98-107); Cholesterol 239 mg/dL (140-199); Estimated Glomerular Filt Rate > 60 mL/min (>60); Globulin 2.9 g/dL (1.7-4.1); Glucose 90 mg/dL (70-99); HDL Cholesterol 91 mg/dL (40-60); HEMOLYSIS < 15 (0-50); Potassium 4.1 mmol/L (3.4-5.1); Sodium 137 mmol/L (137-145); Total Protein 7.4 g/dL (6.3-8.2); Triglycerides 96 mg/dL (35-150)
[2025-05-11 10:20] LABS: Percent Iron Saturation 52 % (15-50); Total Iron Binding Capacity 241 ug/dL (265-497); Transferrin 210 mg/dL (206-381)
[2025-05-11 10:39] LABS: TSH w/ Reflex to FT4 1.48 uIU/mL (0.47-4.68)
[2025-05-11 10:40] LABS: Ferritin 31 ng/mL (6-137)
[2025-05-11 10:58] LABS: Vitamin B12 442 pg/mL (239-931)
[2025-05-12 04:39] LABS: CRP, High Sensitivity < 0.15 mg/L (0.00-3.00)
== END ==
PROVIDERS: PCP Family Medicine; Referring Provider Family Medicine; Visit Provider Family Medicine
DX: D64.9 Anemia, unspecified (principal); F32.A Depression, unspecified; R53.83 Other fatigue; N95.1 Menopausal and female climacteric states
CPT/HCPCS: 36415; 80053; 80061; 82607; 82728; 83540; 83550; 84443; 85027; 86140

== ENCOUNTER → 2025-07-14 13:14 | Outpatient (CLI) | payer OTHER, SELFPAY ==
--- NOTE | 2025-07-14 13:15 | DI.MG.S_ITS ---
MM clip placement RT: 07/14/2025. BI-RADS: None CLINICAL: 45-year old female for right diagnostic mammogram. Tyrer-Cuzick lifetime risk of 17.1%. No personal or first-degree family history of breast cancer. Current reported family history of breast cancer: paternal aunt, paternal aunt's daughter and second paternal aunt. The patient had a prior right breast biopsy. PRIOR EXAMS: Comparison is made with relevant prior imaging in PACS including the most recent: MAMMOGRAPHY TECHNIQUE: 2D and/or 3D (tomosynthesis) digital mammographic views obtained, with additional images as needed for full coverage. DENSITY Right: B. There are scattered areas of fibroglandular density. MAMMOGRAPHY FINDINGS Right: Lower at 6:00, 3.5 cm from nipple, Middle depth, previously measuring (06/21/2025) 1.8 x 1.5 x 2cm: There is a (Butterfly) biopsy marker in targeted location. IMPRESSION: Right * Biopsy marker present. OVERALL ASSESSMENT CATEGORY BI-RADS None: This exam requires no BI-RADS. ELECTRONICALLY SIGNED: Uziel Rios M.D. on 07/14/2025 at 04:00:11 PM PT Interpreting Station ID: [id number]
--- NOTE | 2025-07-14 13:15 | DI.US.S_ITS ---
Right US bx breast perc w vac device: 07/14/2025. Rad-Path Correlation: Pending CLINICAL: 45-year old female for right procedure that resulted from diagnostic mammogram on 06/21/2025. Tyrer-Cuzick lifetime risk of 34.9%. No personal or first-degree family history of breast cancer. Current reported family history of breast cancer: paternal aunt, paternal aunt's daughter and second paternal aunt. The patient had a prior right breast biopsy. PRIOR EXAMS: Comparison is made with relevant prior imaging in PACS including the most recent: Mammogram(s): 06/21/2025. Breast Ultrasound(s): 06/21/2025. Three Other Exams on 12/22/2022, 03/20/2021, 03/25/2018. CONSENT Risks including but not limited to bleeding and infection, benefits and alternatives were discussed with the patient. The patient agreed to the procedure and signed informed consent. Time out procedure was used. ROUTINE Right: Patient positioned in the supine or supine-oblique position, prepped and draped in the usual manner using sterile technique. TECHNIQUE Right Breast: Lower at 6:00, Anterior: Procedure: Ultrasound-guided vacuum-assisted biopsy with Butterfly-shaped marker placement. Device: 13-gauge vacuum-assisted biopsy instrument. Bard(R) [place](TM). Approach: Medial. Anesthesia: Local anesthesia obtained using 5 ml 2%-lidocaine buffered with sodium bicarbonate. Secondary local anesthesia obtained using 6 ml 1%-lidocaine with epinephrine. Skin Entry: Incision with #11 blade. Passes: 4. Targeting Confirmation: Real-time Observation and Post-Procedure Imaging. Post-procedure imaging: Post-procedure imaging confirms the marker to be in target location. Rad/Path Correlation: Pending receipt of pathology report. Conclusion: Ultrasound-guided Vacuum-assisted biopsy, Right Breast: Lower at 6:00, Anterior COMPLICATIONS: No complications were encountered while the patient was in our department. DISPOSITION The patient left our department in good condition with aftercare instructions and urged to contact us should any problem arise. SUMMARY Right Breast: Lower at 6:00, Anterior: Ultrasound-guided vacuum-assisted biopsy of a lesion with Butterfly-shaped marker placement. PATHOLOGY Right Breast: Lower at 6:00, Anterior: Radiologist-Pathologist Correlation: Pending receipt of pathology report. ELECTRONICALLY SIGNED: Uziel Rios M.D. on 07/14/2025 at 03:57:20 PM PT Interpreting Station ID: [id number]
--- NOTE | 2025-07-14 14:46 | PATH_ITS ---
[facility] Accession Number: [id number] No. of containers..01 Tissue . 01 Material submitted: . breast - RT BREAST . 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 Histologic grade (Becka histologic score): 2. Glandular (acinar / tubular differentiation): Score 2. Nuclear pleomorphism: Score 3. Mitotic rate: Score 1. Greatest linear extent: 9 mm. Ductal carcinoma in situ: Not definitively identified. Lymphatic and/or vascular invasion: No definitively identified. Microcalcifications: Not identified. Breast biomarker studies: See note. . . Note: Dr. Luis Fernando Cabrera has also reviewed the case and agrees. . Ana Ruiz RN, at the referring provider's office has been notified of the diagnosis on 07/19/25 via phone call. . Predictive marker immunohistochemical studies are performed on block A1 with the invasive carcinoma showing the following results: . Estrogen receptor (SP1): Positive (90%, strong intensity). Progesterone receptor (1E2): Positive (20%, strong intensity). Her2 (4B5): Equivocal (2+), will be sent for FISH testing with results to be documented in an addendum. Ki-67 (MIB1): 10%. . Internal controls for ER and MD are positive. Cold ischemic time is <1 minute. The scoring criteria for breast biomarkers by immunohistochemistry is based on the ASCO/CAP guidelines (Preston AC et al, J Clin Oncol: 2018 May 10;36(20):5445-5465 and Vega ME et al, Arch Pathol Lab Med: 2009;134(6):907-22). Deparaffinized sections of formalin fixed tissue (along with appropriate positive controls) are incubated with the above antibody(s). Using the automated Christiana stainer, tissue is incubated with the designated antibody which is then localized by a non-biotin, dual polymer detection system. The external controls are reviewed for appropriate reactivity and found to be adequate. Results on the target cell population are indicated above. These tests have not been validated on decalcified tissue. . This test was developed and the performance characteristics were validated by [facility]. It has not been cleared or approved by the U.S. Food and Drug Administration. MRV 07/19/2025 1200 Local . 01 Electronically signed: . Jose Manuel Gutiérrez MD, Dermatopathologist NPI- [id number] . 01 Gross description: . Received in formalin with two identifiers and Rt. breast, are multiple yellow to yuen soft tissue fragments admixed with hemorrhagic material aggregating to 2.4 x 1.5 x 0.3 cm. Filtered and submitted entirely in cassette A1. . The specimen was removed on 07/14/2025. Time in formalin not provided. Cold ischemic time cannot be calculated. Total fixation time is approximately 53 hours. ([id number]) /JANKI 07/16/2025 1930 Local . 01 Pathologist provided ICD-10: C50.911 . 01 CPT . 545942, 457715, 260718, 174898, 146846 Specimen Comment: A courtesy copy of this report has been sent to [facility] Pathology Performed at: [address] [id number] MD Ashok Ellsworth MD Phone: [phone]
== END ==
LOC: US 13:14
PROVIDERS: PCP Family Medicine; Referring Provider Family Medicine; Visit Provider Family Medicine
DX: R92.8 Other abnormal and inconclusive findings on diagnostic imaging of breast (principal); C50.811 Malignant neoplasm of overlapping sites of right female breast; Z17.0 Estrogen receptor positive status [ER+]; Z17.21 Progesterone receptor positive status; Z80.3 Family history of malignant neoplasm of breast
CPT/HCPCS: 19083; 77065

== ENCOUNTER → 2025-08-02 15:43 | Outpatient (CLI) | payer OTHER, SELFPAY ==
--- NOTE | 2025-08-02 15:45 | DI.CT.S_ITS ---
PROCEDURE: CT HEAD/BRAIN WO CON INDICATIONS: Headaches and new diagnosis of breast cancer TECHNIQUE: Noncontrast 4.5 mm thick angled axial sections acquired from the foramen magnum to the vertex, with coronal and sagittal reformats. For radiation dose reduction, the following was used: automated exposure control, adjustment of mA and/or kV according to patient size. COMPARISON: None. FINDINGS: Image quality: Diagnostic. CSF spaces: Basal cisterns are patent. No extra-axial fluid collections. Ventricles are normal in size and shape. Brain: No midline shift. No intracranial mass effect or hemorrhage. Encinas- white matter interface is normal. Skull and face: Calvarium and visualized facial bones are intact, without suspicious lesions. Sinuses: Visualized sinuses and mastoids are clear. IMPRESSION: No acute intracranial pathology. To the limits of this noncontrast study, no findings of intracranial masses or mass effect can be seen. If it would be helpful for clinical management decision making, please consider a dedicated, scheduled brain MRI (without and with contrast) for further evaluation (assuming that there is no contraindication). Dictated by: Nikita Sierra M.D. on 08/02/2025 at 15:28 Approved by: Nikita Sierra M.D. on 08/02/2025 at 15:29
== END ==
LOC: CT 15:44
PROVIDERS: PCP Family Medicine; Referring Provider Surgery; Visit Provider Surgery
DX: C50.911 Malignant neoplasm of unspecified site of right female breast (principal); Z17.0 Estrogen receptor positive status [ER+]; R51.9 Headache, unspecified
CPT/HCPCS: 70450

== ENCOUNTER → 2025-08-11 15:20 | Outpatient (CLI) | payer OTHER, SELFPAY ==
--- NOTE | 2025-08-11 15:22 | DI.MRI.S_ITS ---
PROCEDURE: MR HEAD/BRAIN WO CON INDICATIONS: headaches TECHNIQUE: Noncontrast axial T1 spin echo, axial T2 fast spin echo, sagittal and axial FLAIR, coronal T2 fast spin echo, axial gradient echo, axial diffusion and ADC through the brain. COMPARISON: [facility], CT, CT HEAD/BRAIN WO CON, 08/02/2025, 15:52. FINDINGS: Image quality: Excellent. CSF Spaces: Basal cisterns are patent. No extra-axial fluid collections. Ventricles are normal in size and shape. Brain: No intracranial masses or hemorrhage. Encinas/white matter interface is normal. Brainstem appears normal. Diffusion-weighted images demonstrate no acute infarct. No chronic ischemic insults. Normal intravascular flow voids are present. Skull and face: Calvarium has normal marrow signal. Orbits appear normal. Sinuses: Sinuses and mastoids are clear. IMPRESSION: Negative examination. No explanation for headaches. Dictated by: Shital Kim M.D. on 08/14/2025 at 11:36 Approved by: Shital Kim M.D. on 08/14/2025 at 11:37
--- NOTE | 2025-08-11 15:22 | DI.MRI.S_ITS ---
MR breast BI wo/w con: 08/11/2025. BI-RADS: 4 CLINICAL: 45-year old female for bilateral diagnostic breast MRI. New Diagnosis of Breast Cancer. PRIOR EXAMS 07/14/2025, 06/21/2025, 12/22/2022, 03/20/2021, 03/25/2018. MRI TECHNIQUE Bilateral breast MRI was performed on a 1.5 Stacy magnet using a dedicated breast coil with mild compression. Axial T1 and T2 STIR sequences were obtained. Dynamic contrast enhanced VIBRANT fat-suppressed sequences were obtained. Delayed sagittal high resolution or sagittal reconstructed isotropic sequence was also obtained. Subtraction images and maximum intensity projection images were obtained. The study was evaluated using [employer] software. IV Contrast: 20 ml ProHance. FIBROGLANDULAR TISSUE Bilateral: D. Extreme fibroglandular tissue. BACKGROUND PARENCHYMAL ENHANCEMENT Bilateral: Marked symmetrical background parenchymal enhancement. BREAST FINDINGS Evaluation is limited by marked background parenchymal enhancement. Right: Axilla, Level I: There are four asymmetrically prominent level 1 axillary lymph nodes, the largest measuring 1.4 x 0.6 cm (series 5, image 114). Right: Lower at 6:00, 2 cm from nipple, (Sagittal S:12/I:69), (Axial S:5/I:52), measuring 2 x 2.5 x 2.3cm. Previous report: 3.5 cm from nipple: Correlating with area of biopsy there is an irregularly shaped, heterogeneously enhancing mass with irregular margins. Kinetic enhancement curve shows fast initial phase and washout pattern on delayed phase. On non-contrast sequences this mass shows intermediate signal intensity on STIR/T2-weighted sequences. Left: Benign-appearing cyst or cysts noted. There is no suspicious mass or non-mass enhancement. There are no abnormal axillary or internal mammary lymph nodes. ABDOMEN FINDINGS Subcentimeter STIR hyperintense lesion in the liver is too small to characterize but likely represents a cyst (series 2 image 4). IMPRESSION: Right: Axilla, Level I * Suspicious findings with likelihood of malignancy. Right (Mass): Lower at 6:00, 2 cm from nipple, (Sagittal S:12/I:69), (Axial S:5/I:52), measuring 2 x 2.5 x 2.3cm. Previous report: 3.5 cm from nipple * Known Biopsy-Proven Malignancy. Left * No evidence of malignancy with benign findings. RECOMMENDATIONS Right: Lower at 6:00, 2 cm from nipple * Recommend continued surgical and oncological management of known biopsy- proven malignancy. Right: Axilla, Level I * If this would alter clinical management, a second look ultrasound of the right axilla can be performed to further evaluate the prominent level 1 axillary lymph nodes, with possible image guided biopsy if a suspicious axillary lymph node is identified. COMMENTS: The imaging literature indicates that a negative contrast breast MRI examination has a high sensitivity and a moderate specificity for detecting and excluding invasive carcinomas to a detection threshold of 3-5 mm; nonetheless, appropriate clinical and mammographic follow-up are recommended. MRI is not sensitive for detecting DCIS (ductal carcinoma in situ) and may not detect large invasive neoplasms that show only minimal enhancement such as mucinous carcinoma. If there are suspicious calcifications or clinically worrisome palpable masses, then biopsy should still be considered. Invasive neoplasms can be hidden by co-existent and benign enhancement caused by mastitis, hormone therapy effects, radiation therapy, , and recent biopsy or surgery. False positive examinations can occur in a number of circumstances, including breasts that have recently been subject to invasive procedures and those that contain atypical ductal hyperplasia, hormonally stimulated glandular tissue, fat necrosis, or radial scars. OVERALL ASSESSMENT CATEGORY BI-RADS-4: Suspicious. PRELIMINARILY ELECTRONICALLY SIGNED: Sharon Hawk M.D. on 08/14/2025 at 06:46:48 PM PT ELECTRONICALLY SIGNED: Sharon Hawk M.D. on 08/14/2025 at 06:51:42 PM PT Interpreting Station ID: [id number]
== END ==
PROVIDERS: PCP Family Medicine; Referring Provider Family Medicine; Visit Provider Family Medicine
DX: C50.911 Malignant neoplasm of unspecified site of right female breast (principal); Z17.0 Estrogen receptor positive status [ER+]
CPT/HCPCS: 70551; 71046; 77049; A9579

== ENCOUNTER → 2025-08-11 15:22 | Outpatient (CLI) | payer OTHER, SELFPAY ==
--- NOTE | 2025-08-11 16:44 | DI.RAD.S_ITS ---
PROCEDURE: XR CHEST 2V INDICATIONS: Short of breath TECHNIQUE: 2 views of the chest were acquired. COMPARISON: None. FINDINGS: Surgical changes and devices: None. Lungs and pleura: Lungs are clear. No pleural effusions or pneumothorax. Mediastinum: Mediastinal contours are normal. Heart size is normal. Bones and chest wall: No suspicious bony abnormalities. Soft tissues appear unremarkable. IMPRESSION: No acute cardiopulmonary abnormality is seen. Approved by: Julio Olsen M.D. on 08/11/2025 at 18:14
== END ==
PROVIDERS: PCP Family Medicine; Referring Provider Family Medicine; Visit Provider Surgery
DX: C50.911 Malignant neoplasm of unspecified site of right female breast (principal); Z17.0 Estrogen receptor positive status [ER+]
CPT/HCPCS: 71046

== ENCOUNTER → 2025-10-04 16:00 | Outpatient (CLI) | payer OTHER, SELFPAY ==
--- NOTE | 2025-10-04 16:02 | DI.US.S_ITS ---
PROCEDURE: US PELVIC COMPLETE INDICATIONS: Irregular bleeding/Stage 3 breast cancer TECHNIQUE: Real-time scanning was performed of the pelvic organs, with image documentation. Additional endovaginal scanning was necessary due to incomplete visualization of the adnexal and endometrial structures by transabdominal scanning. COMPARISON: [facility], US, PELVIC COMPLETE, 06/12/2017, 15:37. [facility], CT, CT CHEST ABDOMEN PELVIS WITH CONTRAST, 09/22/2025, 11:30. FINDINGS: Uterus: Uterus is anteverted and mildly enlarged in size at 12.1 x 8 x 6.5 cm. The myometrium is homogeneous. The endometrium measures 4 mm combined thickness. Hypoechoic uterine lesions are seen, which are attributed to fibroids. The largest measure as follows: Mid anterior uterus, intramural, 3.6 x 3.6 x 3 cm Left anterior uterus, intramural, 3.8 x 3.2 x 3.7 cm Ovaries: The right ovary measures 2.7 x 1.9 x 3.9 cm, with a calculated ovarian volume of 10 cc. The left ovary measures 2.1 x 2.4 x 2.8 cm, with a calculated ovarian volume of 2.3 cc. The ovaries have a normal sonographic appearance. Less than 12 follicles can be seen in each ovary. No adnexal masses are seen. Other: No pathologic free abdominal or pelvic fluid. IMPRESSION: No imaging explanation is found for this patient's presenting symptoms. Intramural uterine fibroids are noted. Normal appearing endometrial stripe. No ovarian mass seen. We strive to produce accurate, complete, and clear reports of imaging services. To assist us in improving patient care, this report was composed using standard report templates and voice recognition software. Therefore, it may contain abnormal punctuation, insertions and/or omissions. Occasional wrong-word or sound-alike substitutions may occur. Though we review the report and make efforts to correct it, we do recommend that the report be read carefully in proper context to recognize any text inaccuracies. Dictated by: Nikita Sierra M.D. on 10/04/2025 at 16:30 Approved by: Nikita Sierar M.D. on 10/04/2025 at 16:32
== END ==
LOC: US 16:01
PROVIDERS: PCP Family Medicine; Referring Provider Obstetrics & Gynecology; Visit Provider Obstetrics & Gynecology
DX: C50.911 Malignant neoplasm of unspecified site of right female breast (principal); Z17.0 Estrogen receptor positive status [ER+]; N92.6 Irregular menstruation, unspecified; D25.1 Intramural leiomyoma of uterus
CPT/HCPCS: 76830; 76856